=== PATIENT | male | born 1950 | race Caucasian/White ===

== ENCOUNTER 2022-10-15 09:50 | Emergency (ER) | payer BC, SELFPAY ==
--- NOTE | 2022-10-15 10:19 | EXP.UTC ---
Discharge Plan Disposition Patient Disposition: Home, Self-Care Condition: Good Prescriptions Prescriptions: New cephalexin 500 mg capsule 500 mg PO QID Qty: 40 0RF mupirocin 2 % ointment 1 applic topical TID 7 Days Qty: 15 0RF Referrals Follow up/Referrals: Helena Rosario [Primary Care Provider] - See instructions Activity Restrictions/Add. Instructions Additional Instructions/Restrictions: Keep the wound clean and dry. Watch the wound for signs of worsening infection, such as redness, swelling, drainage, fever. etc. Take tylenol for pain. Follow up with your regular doctor for a wound recheck in 3 days. We cultured the wound. This test will take 3 days to complete. It should tell which bacteria is infecting the wound and which antibiotics treat it best. Make sure you follow up with your physician to go over these results and to have the medication adjusted if necessary. GO TO THE ER FOR ANY WORSENING SYMPTOMS OR CONCERNS. Clinical Impressions Clinical Impression: Leg wound, left, Need for Tdap vaccination, Cellulitis Instructions Patient Instructions: Cellulitis, Cephalexin, Ceftriaxone Injection, Mupirocin Discharge ED Provider: Wallace Archibald [facility] General Stated complaint: AO [id number] left leg injury, home accident Time Seen by Provider: 10/15/22 10:19 History of Present Illness Provider Complaint: He states that 5 days ago he was chopping wood when he dropped a piece of the wood and it hit him on the front of his left keys area. He has had a abrasion there since then. He states that he is developing redness surrounding the wound and there is some yellowish drainage noted. He is not a diabetic. Related Data Previous Rx's Medication Instructions Recorded cephalexin 500 mg capsule 500 mg PO QID #40 caps 10/15/22 mupirocin 2 % topical ointment 1 applic topical TID 7 days #15 10/15/22 grams Allergies Allergy/AdvReac Type Severity Reaction Status Date / Time amiodarone Allergy Verified 10/15/22 10:38 Sulfa (Sulfonamide Allergy Verified 10/15/22 10:38 Antibiotics) [facility] Disclaimer: The information contained in this section may have been updated after the patient was seen, as this information can be updated by other users. Medical History (Updated 10/15/22 @ 11:01 by Wallace Dragan, [place]) Atrial fibrillation Cancer Cataract GERD (gastroesophageal reflux disease) Prostate disease Retina disorder Surgical History (Updated 10/15/22 @ 10:40 by Raya Sullivan RN) H/O cardiac radiofrequency ablation History of appendectomy History of cardiac cath History of sinus surgery Social History Smoking Status: Former smoker alcohol intake: never current occupational status: retired Travel in the last 8 weeks: None ROS Obtained: Yes All systems reviewed & no additional complaints except as documented Constitutional Constitutional: Denies chills and Denies fever(s) Eyes Eyes: Denies eye discharge ENT Ears, Nose, Mouth, and Throat: Denies dizziness, Denies otalgia and Denies sore throat Cardiovascular Cardiovascular: Denies chest pain Respiratory Respiratory: Denies shortness of breath, Denies chest congestion, Denies cough, Denies stridor and Denies wheezing Gastrointestinal Gastrointestingal: Denies nausea or vomiting Musculoskeletal Musculoskeletal: Reports system reviewed and no additional complaints, except as documented and Denies arthralgias Integumentary/Breasts Skin/Breast: Reports as per HPI Neurologic Neurologic: Denies dizziness and Denies paresthesias Allergic/Immunologic Allergic/Immunologic: Denies wheezing Physical Exam General General appearance: alert and in no apparent distress Head Head exam: atraumatic, normocephalic and normal inspection Eye Eye exam: Present normal appearance, PERRL and EOMI ENT ENT exam: Present normal exam, normal oropharynx, mucous membranes moist, TM's normal bilaterally and normal externa
[2022-10-15 10:25] VITALS: BP 141/89; PULSE 101; RESP 19; TEMP 36.8; O2SAT 98; BMI 26.9
[2022-10-15 11:06] VITALS: BP 141/89; PULSE 101; RESP 19; TEMP 36.8; O2SAT 98
--- NOTE | 2022-10-15 11:07 | PC.NURSE ---
NEOSPORIN AND DRY DRESSING APPLIED TO RIGHT LOWER LEG WOUND AT THIS TIME
== END 2022-10-15 11:14 | disposition home or self-care (01) ==
PROVIDERS: Emergency Provider Nurse Practitioner Family; PCP Family Medicine
DX: S81.802A Unspecified open wound, left lower leg, initial encounter (principal); L03.116 Cellulitis of left lower limb; Z23 Encounter for immunization; K21.9 Gastro-esophageal reflux disease without esophagitis; Z87.891 Personal history of nicotine dependence; W20.8XXA Other cause of strike by thrown, projected or falling object, initial encounter
CPT/HCPCS: 87070; 87077; 87186; 87205; 90715; 96372; 99204; 99212; G0463; J0696